=== PATIENT | female | born 1960 | race Hispanic/Latino ===

== ENCOUNTER 2019-04-07 12:08 | Outpatient (CLI) | payer OTHER ==
[2019-04-07 13:45] LABS: #Basophils 0.1 thou/uL (0.0-0.2); #Eosinphils 0.3 thou/uL (0.0-0.7); #Lymphocytes 2.4 thou/uL (1.20-3.40); #Monocytes 0.6 thou/uL (0.11-0.59); #Neutrophils 4.4 thou/uL (1.40-6.50); %Basophils 0.7 % (0.0-1.0); %Lymphocytes 30.8 % (21.0-51.0); %Monocytes 7.4 % (0.0-10.0); %Neutrophils 57.2 % (42.0-75.0); Hemoglobin 13.4 g/dL (12.0-16.0); Mean Corpuscular HGB CONC 32.7 g/dL (32.0-36.0); Mean Corpuscular Hemoglobin 27.3 pg (27.0-31.0); Mean Corpuscular Volume 83.5 fL (78.0-98.0); Mean Platelet Volume 6.8 fL (7.4-10.4); Platelet Count 320 thou/uL (130-400); RBC Distribution Width 13.6 % (11.5-14.5); White Blood Cell (WBC) Count 7.6 thou/uL (4.8-10.8)
[2019-04-07 14:01] LABS: Anion Gap 13 mmol/L (10-20); BUN (Urea Nitrogen) 13 mg/dL (9.8-20.1); Calc. Creatinine Clearance 0 mL/min (70-130); Calcium 9.9 mg/dL (7.8-10.44); Carbon Dioxide 27 mmol/L (22-29); Chloride 105 mmol/L (98-107); Estimated GFR-MDRD Greater than 90; Glucose 99 mg/dL (70-105); Potassium 4.1 mmol/L (3.5-5.1); Sodium 141 mmol/L (136-145)
== END 2019-04-07 12:09 | disposition home or self-care (01) ==
LOC: LABBT 12:08
PROVIDERS: ATTEND Specialist
DX: Z01.818 Encounter for other preprocedural examination (principal); R59.9 Enlarged lymph nodes, unspecified
CPT/HCPCS: 80048; 85025; 93005; 93010

== ENCOUNTER 2019-04-09 11:04 | Day surgery (SDC) | payer OTHER ==
[2019-04-07 12:23] VITALS: BMI 27.8
--- NOTE | 2019-04-07 12:34 | HP ---
HISTORY OF PRESENT ILLNESS: Padmaja Orozco is a 58-year-old female, [place] speaking only, referred by Dr. Magalie Owens. She has had a right axillary mass 4 cm for the past 3 to 4 weeks. Right mammogram 03/11/2019. Ultrasound reveal a 4 cm mass, heterogeneous, right axilla, suspicious. Mammogram reveals only that. Biopsy recommended. The patient has had a left breast biopsy 12 o'clock in [place] many years ago, excisional and benign. She has phobia for needles. She denies weight loss or anorexia. She denies fevers. FAMILY HISTORY: Negative for breast cancer. OBSTETRIC HISTORY: 4, para 4. SOCIAL HISTORY: Tobacco, none. Alcohol, none. MEDICATIONS: 1. Flonase. 2. Nexium 40 mg a day. 3. Metformin 500 mg once a day with meals. 4. Quinapril 10 mg a day. 5. Ranitidine once a day. 6. Naproxen 500 mg a day. 7. Triamcinolone. 8. Ibuprofen p.r.n. PAST MEDICAL HISTORY: Hypertension, elevated cholesterol, elevated triglycerides, diabetes mellitus. The patient reports EGD in [place] more than 10 years ago for GERD. REVIEW OF SYSTEMS: Noncontributory. PHYSICAL EXAMINATION: VITAL SIGNS: Weight 152 pounds, height 5 feet and 2 inches. Blood pressure 162/76, pulse 80, temperature 98.2 degrees. HEAD, EARS, EYES, NOSE, AND THROAT: Unremarkable. LUNGS: Clear to auscultation. CARDIAC: Regular rate and rhythm without murmur or gallop. ABDOMEN: Soft and nontender. Small umbilical hernia, reducible, asymptomatic. No lymphadenopathy in groins, left axilla, or neck. Right axilla reveals a 4 cm node in the apex of the axilla. LABORATORY DATA: 03/03/2019 labs: White count 5.4, hemoglobin 12.9, platelet count 272,000. Cholesterol 230, triglycerides 188. BUN 13, creatinine 0.61, sodium 142, potassium 4.3, carbon dioxide 24. Liver function tests normal. Urinalysis unremarkable. Mammogram 03/11/2019, ultrasound of right axilla as noted above. ASSESSMENT AND PLAN: 1. Right axillary mass. The patient has a needle phobia and does not want a biopsy. She would rather have excisional biopsy. We would recommend this under anesthesia as outpatient. She is self-pay. We will give her assessment. She will call us when she is ready to schedule that as an outpatient under general anesthesia. She has laboratories available and we will obtain in addition to EKG and PA and lateral chest x-ray. She understands risks and benefits and consents. 2. Diabetes mellitus. 3. Hypertension. 4. Elevated cholesterol. 5. History of gastroesophageal reflux disease. Job ID: [id number]
[2019-04-09] MEDS ORDERED: Bacitracin Zinc Ointment 30 gm TUBE ONE (11:25)
[2019-04-09] MEDS ORDERED: Bupivacaine PF 0.5% 30 ML VIAL ONE (11:25)
[2019-04-09] MEDS ORDERED: EPINEPHrine 1 MG/ML AMP ONE (11:25)
[2019-04-09] MEDS ORDERED: Lidocaine 2% PF 5 ML VIAL ONE ×2 (11:25)
[2019-04-09] MEDS ORDERED: Ketorolac Tromethamine 30 MG/ML VIAL ONE (11:35)
[2019-04-09] MEDS ORDERED: Lidocaine 1% w/Epinephrine 1:100K 20 ML VIAL ONE (11:44)
[2019-04-09] MEDS ORDERED: Midazolam HCl 2 mg/2 ml Vial ONE (11:52)
[2019-04-09] MEDS ORDERED: Fentanyl 100 MCG/2 ML VIAL ONE (11:52)
--- NOTE | 2019-04-09 15:54 | OP ---
DATE OF PROCEDURE: 04/09/2019 PREOPERATIVE DIAGNOSIS: Right axillary mass. POSTOPERATIVE DIAGNOSIS: Right axillary abscess. ANESTHESIA: Intravenous sedation local 0.5% Marcaine, 30 mL mixed with 1% xylocaine of 30 mL mixture used. DESCRIPTION OF PROCEDURE: The patient was taken to the operating room, where under intravenous sedation, right axilla was clipped of hair, prepared with ChloraPrep and draped in routine fashion. This mass on ultrasound initially was solid and was suspicious for malignancy. In the interim, it was; however, fluctuant, slightly reddened. Local anesthetic was infiltrated in the skin and subcutaneous tissue about the outside, incision made and drained a copious amount of thick purulent material sent for culture and sensitivity. Pathology not submitted. Wound irrigated. Local anesthetic was infiltrated about the wound. Normal saline wet-to-dry dressing applied. The patient tolerated the procedure well. Job ID: [id number]
== END 2019-04-09 13:33 | disposition home or self-care (01) ==
LOC: SDC 11:04
PROVIDERS: ATTEND Specialist
PROC: 0J980ZZ Drainage of Abdomen Subcutaneous Tissue and Fascia, Open Approach (ICD-10-PCS; principal; 2019-04-09)
DX: L02.411 Cutaneous abscess of right axilla (principal); I10 Essential (primary) hypertension; E03.9 Hypothyroidism, unspecified; E11.9 Type 2 diabetes mellitus without complications; Z79.84 Long term (current) use of oral hypoglycemic drugs; Z79.899 Other long term (current) drug therapy
CPT/HCPCS: 87070; 87205; J0131; J0171; J0690; J1885; J2001; J2250; J3010; S0020

== ENCOUNTER 2019-04-21 21:20 | Emergency (ER) | payer SELFPAY | END 2019-04-22 00:03 | disposition home or self-care (01) | LOC: ERS 21:20 | DX: Z48.817 Encounter for surgical aftercare following surgery on the skin and subcutaneous tissue (principal); I10 Essential (primary) hypertension; E78.5 Hyperlipidemia, unspecified; Z79.84 Long term (current) use of oral hypoglycemic drugs; Z79.899 Other long term (current) drug therapy | CPT/HCPCS: 99283 ==